=== PATIENT | female | born 1945 | race Caucasian/White ===

== ENCOUNTER 2020-02-22 22:11 | Inpatient (IN) | payer MEDICARE ==
[~2020-02-22] VITALS: Ht 154.9 cm; Wt 90.0 kg
[2020-02-22 22:33] LABS: BASOPHILS % (AUTO) 0.6 % (0-1); EOSINOPHILS % (AUTO) 0.1 % (0-6); HEMOGLOBIN 8.3 g/dl (12.0-16.0); LYMPHOCYTES # (AUTO) 0.2 X10'3 (1.1-4.8); LYMPHOCYTES % (AUTO) 2.4 % (21-51); MEAN CORPUSCULAR HEMOGLOBIN 27.2 PG (27.0-31.0); MEAN CORPUSCULAR HGB CONC 33.2 g/dL (33.0-36.5); MEAN PLATELET VOLUME 7.8 FL (7.4-10.4); MONOCYTES # (AUTO) 0.5 X10'3 (0-0.9); MONOCYTES % (AUTO) 5.9 % (2-12); NEUTROPHILS # (AUTO) 7.7 X10'3 (1.8-7.7); PLATELET COUNT 214 X10'3 (140-440); RED BLOOD COUNT 3.05 X10'6 (4.20-5.60); RED CELL DISTRIBUTION WIDTH 15.7 % (11.5-14.5); WHITE BLOOD COUNT 8.5 X10'3 (4.5-11.0)
--- NOTE | 2020-02-22 22:42 | NUR ---
Pt tucked into bed, lights dimmed. Call light by her. She is sleepy. Encouraged her to rest.
[2020-02-22 22:49] LABS: ALANINE AMINOTRANSFERASE 138 U/L (12-78); ALBUMIN 2.7 G/DL (3.4-5.0); ALBUMIN/GLOBULIN RATIO 0.8 (1.1-1.5); ALKALINE PHOSPHATASE 207 IU/L (46-116); ANION GAP 10 (8-16); ASPARTATE AMINO TRANSFERASE 101 U/L (10-37); BILIRUBIN,TOTAL 3.7 MG/DL (0.1-1.0); BLOOD UREA NITROGEN 34 MG/DL (7-18); BUN/CREATININE RATIO 15.2 (6.6-38.0); CALCIUM 8.2 MG/DL (8.5-10.1); CHLORIDE 93 MMOL/L (99-107); CREATININE 2.23 MG/DL (0.40-0.90); GLUCOSE 128 MG/DL (70-104); POTASSIUM 5.4 MMOL/L (3.5-5.1); SODIUM 122 MMOL/L (135-145); TOTAL CARBON DIOXIDE 18.6 MMOL/L (24-32); TOTAL PROTEIN 6.2 G/DL (6.4-8.2); eGFR 21 ML/MIN
[2020-02-22] MEDS ORDERED: HYDR12.55 PO (22:56)
[2020-02-22] MEDS ORDERED: LEVO75TA7 PO (22:56)
[2020-02-22] MEDS ORDERED: LECI400C2 PO (22:56)
[2020-02-22] MEDS ORDERED: TELM80TA9 PO (22:56)
[2020-02-22] MEDS ORDERED: AMIT10TA6 PO (22:56)
[2020-02-22] MEDS ORDERED: FLAX100031 PO (22:56)
[2020-02-22] MEDS ORDERED: EVOL140P3 SUBCUT (22:56)
[2020-02-22] MEDS ORDERED: ASPI81TA52 PO (22:56)
[2020-02-22] MEDS ORDERED: OMEP40CA13 PO (22:56)
[2020-02-22] MEDS ORDERED: VITA-268 PO (22:56)
[2020-02-22] MEDS ORDERED: FERR325T28 PO (22:56)
[2020-02-22] MEDS ORDERED: MAGN200T PO (22:56)
[2020-02-22] MEDS ORDERED: DOCU-148 PO ×2 (22:56)
[2020-02-22] MEDS ORDERED: OMEG-15 PO (22:56)
[2020-02-22] MEDS ORDERED: CALC300T4 PO (22:56)
[2020-02-22] MEDS ORDERED: vitamin d3 PO (22:57)
[2020-02-22] MEDS ORDERED: ASCO500C17 PO (22:57)
[2020-02-22] MEDS ORDERED: furosemide 10 MG/1 ML 10ml inj IV ONE (23:25)
--- NOTE | 2020-02-22 23:55 | NUR ---
Pt states that she just doens't feel getting up to the BR or even BS commode is anything she wants to try. She said she is just so weak, and so wiped out that she just wants a rios. Hospitalist states to place rios.
[2020-02-23] VITALS (11 sets, daily range): BP systolic 112–165; BP diastolic 46–90
--- NOTE | 2020-02-23 00:02 | NUR ---
Patient's daughter Samantha's phone number [phone].
[2020-02-23] MEDS ORDERED: normal saline 1000ml 1,000 ML IV SCH (00:06)
[2020-02-23] MEDS ORDERED: ondansetron/PF 4mg/2ml inj IV PRN (00:10)
[2020-02-23] MEDS ORDERED: morphine 2 MG/ML inj. syringe IV PRN ×2 (00:10)
[2020-02-23] MEDS ORDERED: magnesium 4gm in 100ml NS 100 ML IV PRN (00:10)
[2020-02-23] MEDS ORDERED: potassium Cl 20 mEq SR tablet PO PRN ×2 (00:10)
[2020-02-23] MEDS ORDERED: magnesium 2GM in 50ml NS 50 ML IV PRN (00:10)
[2020-02-23] MEDS ORDERED: potassium CL 10mEq/100ml bag 100 ML IV PRN ×2 (00:10)
[2020-02-23] MEDS ORDERED: pantoprazole 40 MG vial IV ONE (00:20)
--- NOTE | 2020-02-23 00:26 | NUR ---
informed Dr Cash that I just adm lasix 20 mg IV and if he really wants NS infusing at 100. He told me to dc that order and just have the patient saline locked. I informed him that she already had the protonix IVP at the other facility and he told me to cancel the IVP as well.
[2020-02-23] MEDS ORDERED: LIDOcaine 2% 10ml TOPICAL JELLY (Urojet) TP ONE (01:05)
[2020-02-23] MEDS: normal saline 1000ml 1,000 ML IV SCH ×3 (01:26→20:23)
[2020-02-23] MEDS: pantoprazole 40MG/NS 100ML BAG 100 ML IV SCH ×5 (01:26→20:23)
[2020-02-23 04:31] LABS: HEMOGLOBIN 8.8 g/dl (12.0-16.0); MEAN CORPUSCULAR HEMOGLOBIN 26.9 PG (27.0-31.0); MEAN CORPUSCULAR HGB CONC 32.6 g/dL (33.0-36.5); MEAN CORPUSCULAR VOLUME 82.5 FL (78-98); PLATELET COUNT 295 X10'3 (140-440); RED BLOOD COUNT 3.27 X10'6 (4.20-5.60); WHITE BLOOD COUNT 8.6 X10'3 (4.5-11.0)
--- NOTE | 2020-02-23 06:32 | NUR ---
Problems reprioritized. Patient report given, questions answered & plan of care reviewed with Juanita DICK.
[2020-02-23] MEDS: calcium carbonate 500mg chew tablet PO SCH (07:48)
[2020-02-23] MEDS: ferrous sulfate 325mg tablet PO SCH (07:49)
[2020-02-23] MEDS: OMEGA-3/DHA/EPA/FISH OIL 1 EACH CAPSULE.DR PO SCH (07:49)
[2020-02-23] MEDS: vitamin D (cholecalciferol) 1,000 unit tablet PO SCH (07:49)
[2020-02-23] MEDS: docusate sod 100mg capsule PO SCH ×2 (07:50→20:22)
[2020-02-23] MEDS: levoTHYROXINE 75mcg tablet PO SCH (07:50)
[2020-02-23] MEDS: losartan 25mg tablet PO SCH (07:51)
[2020-02-23] MEDS: ascorbic acid 500mg tablet PO SCH (07:54)
[2020-02-23] MEDS ORDERED: FLAXSEED OIL 2400 MG PO SCH (08:00)
[2020-02-23] MEDS ORDERED: TELMISARTAN PO SCH (08:00)
[2020-02-23] MEDS ORDERED: non-formulary drug (Vitamin B Complex (B Complex) 1 TAB) PO SCH (08:00)
[2020-02-23] MEDS ORDERED: K and/or MAG REPLACEMENT MC SCH (08:00)
[2020-02-23] MEDS ORDERED: docusate sod 100mg capsule PO SCH (08:00)
[2020-02-23] MEDS ORDERED: LECITHIN PO SCH (08:00)
[2020-02-23] MEDS ORDERED: MAGNESIUM PO SCH (08:00)
[2020-02-23 08:35] LABS: ALANINE AMINOTRANSFERASE 132 U/L (12-78); ALBUMIN 2.7 G/DL (3.4-5.0); ALBUMIN/GLOBULIN RATIO 0.8 (1.1-1.5); ALKALINE PHOSPHATASE 197 IU/L (46-116); ANION GAP 10 (8-16); ASPARTATE AMINO TRANSFERASE 97 U/L (10-37); BILIRUBIN,TOTAL 3.3 MG/DL (0.1-1.0); BLOOD UREA NITROGEN 34 MG/DL (7-18); CALCIUM 8.2 MG/DL (8.5-10.1); CHLORIDE 96 MMOL/L (99-107); CREATININE 2.27 MG/DL (0.40-0.90); GLUCOSE 97 MG/DL (70-104); POTASSIUM 4.1 MMOL/L (3.5-5.1); SODIUM 128 MMOL/L (135-145); TOTAL CARBON DIOXIDE 22.5 MMOL/L (24-32); eGFR 21 ML/MIN
--- NOTE | 2020-02-23 10:33 | NUR ---
Dr. Jaimes at bedside with patient and nurse. Continue to keep pt NPO for EGD today. Will continue to monitor.
--- NOTE | 2020-02-23 11:20 | NUR ---
GI lab called, procedure at 1pm today via wheelchair.
[2020-02-23 12:14] LABS: HEMATOCRIT 24.6 % (35.0-45.0); HEMOGLOBIN 8.1 g/dl (12.0-16.0); MEAN CORPUSCULAR HEMOGLOBIN 27.1 PG (27.0-31.0); MEAN CORPUSCULAR VOLUME 82.2 FL (78-98); MEAN PLATELET VOLUME 8.1 FL (7.4-10.4); PLATELET COUNT 275 X10'3 (140-440); RED BLOOD COUNT 2.99 X10'6 (4.20-5.60); RED CELL DISTRIBUTION WIDTH 15.8 % (11.5-14.5); WHITE BLOOD COUNT 8.7 X10'3 (4.5-11.0)
--- NOTE | 2020-02-23 13:36 | NUR ---
Patient transported to GI Lab via wheelchair and tech.
[2020-02-23] MEDS ORDERED: fentaNYL/PF 50MCG/1 ML 2ML syringe ONE (14:23)
[2020-02-23] MEDS ORDERED: MIDAZolam 5mg/5ml vial ONE (14:24)
[2020-02-23] MEDS ORDERED: LIDOcaine Viscous 15ml cup ONE (14:25)
--- NOTE | 2020-02-23 16:05 | NUR ---
Unable to obtain Vital signs due to patient in GI Lab.
--- NOTE | 2020-02-23 16:43 | NUR ---
GI Lab called report, spoke to Yue. Patient on the way to room. Will continue to monitor.
--- NOTE | 2020-02-23 16:56 | NUR ---
Patient is in room sitting in chair. VSS: BP: 156/76, HR: 84, 0/10 Pain, 98%RA. Patient is waiting to have some water before starting with clear liquids No reds as per advised by GI Lab. Will continue to monitor.
[2020-02-23] MEDS ORDERED: loratadine 10mg tablet PO ONE (18:15)
--- NOTE | 2020-02-23 18:19 | NUR ---
Patient in room PCU 3025. I have received report from Juanita DICK and had the opportunity to ask questions and assume patient care.
--- NOTE | 2020-02-23 18:19 | NUR ---
Problems reprioritized. Patient report given, questions answered & plan of care reviewed with Freddie DICK.
[2020-02-23 18:35] LABS: HEMATOCRIT 24.8 % (35.0-45.0); HEMOGLOBIN 8.1 g/dl (12.0-16.0); MEAN CORPUSCULAR HGB CONC 32.7 g/dL (33.0-36.5); MEAN CORPUSCULAR VOLUME 82.7 FL (78-98); MEAN PLATELET VOLUME 7.4 FL (7.4-10.4); PLATELET COUNT 295 X10'3 (140-440); RED CELL DISTRIBUTION WIDTH 15.7 % (11.5-14.5); WHITE BLOOD COUNT 8.2 X10'3 (4.5-11.0)
[2020-02-23] MEDS: amitriptyline 10mg tablet PO SCH (20:23)
[2020-02-23] MEDS ORDERED: diphenhydrAMINE 25mg capsule PO PRN (21:00)
[2020-02-23 22:03] LABS: HEMATOCRIT 24.4 % (35.0-45.0); HEMOGLOBIN 8.3 g/dl (12.0-16.0); MEAN CORPUSCULAR HEMOGLOBIN 27.8 PG (27.0-31.0); MEAN CORPUSCULAR HGB CONC 33.8 g/dL (33.0-36.5); MEAN CORPUSCULAR VOLUME 82.3 FL (78-98); MEAN PLATELET VOLUME 7.4 FL (7.4-10.4); PLATELET COUNT 307 X10'3 (140-440); RED BLOOD COUNT 2.97 X10'6 (4.20-5.60); RED CELL DISTRIBUTION WIDTH 15.4 % (11.5-14.5)
[2020-02-23 22:11] LABS: % IRON SATURATION 4 % (11-46); IRON 12 UG/DL (49-151); TOTAL IRON BINDING CAPACITY 316 UG/DL (259-388)
[2020-02-24] MEDS: pantoprazole 40MG/NS 100ML BAG 100 ML IV SCH ×2 (01:00→08:25)
[2020-02-24 02:00] VITALS: BP 145/82
[2020-02-24] MEDS: normal saline 1000ml 1,000 ML IV SCH ×2 (02:52→20:12)
[2020-02-24 05:19] LABS: HEMOGLOBIN 7.2 g/dl (12.0-16.0); MEAN CORPUSCULAR HEMOGLOBIN 27.1 PG (27.0-31.0); MEAN CORPUSCULAR HGB CONC 33.3 g/dL (33.0-36.5); MEAN CORPUSCULAR VOLUME 81.3 FL (78-98); MEAN PLATELET VOLUME 7.5 FL (7.4-10.4); PLATELET COUNT 243 X10'3 (140-440); RED BLOOD COUNT 2.64 X10'6 (4.20-5.60); RED CELL DISTRIBUTION WIDTH 16.2 % (11.5-14.5); WHITE BLOOD COUNT 7.6 X10'3 (4.5-11.0)
[2020-02-24 05:27] LABS: ALANINE AMINOTRANSFERASE 112 U/L (12-78); ALBUMIN 2.3 G/DL (3.4-5.0); ALBUMIN/GLOBULIN RATIO 0.7 (1.1-1.5); ALKALINE PHOSPHATASE 182 IU/L (46-116); ANION GAP 11 (8-16); ASPARTATE AMINO TRANSFERASE 73 U/L (10-37); BILIRUBIN,TOTAL 2.4 MG/DL (0.1-1.0); BLOOD UREA NITROGEN 28 MG/DL (7-18); BUN/CREATININE RATIO 15.8 (6.6-38.0); CHLORIDE 101 MMOL/L (99-107); CREATININE 1.77 MG/DL (0.40-0.90); GLUCOSE 102 MG/DL (70-104); MAGNESIUM 1.7 MG/DL (1.5-2.4); POTASSIUM 4.1 MMOL/L (3.5-5.1); SODIUM 132 MMOL/L (135-145); TOTAL CARBON DIOXIDE 20.1 MMOL/L (24-32); TOTAL PROTEIN 5.6 G/DL (6.4-8.2); eGFR 28 ML/MIN
[2020-02-24 05:28] LABS: HEMATOCRIT 21.5 % (35.0-45.0)
--- NOTE | 2020-02-24 06:17 | NUR ---
Problems reprioritized. Patient report given, questions answered & plan of care reviewed with Juanita DICK.
--- NOTE | 2020-02-24 06:30 | NUR ---
Patient in room PCU 3025. I have received report from Freddie DICK and had the opportunity to ask questions and assume patient care.
[2020-02-24 07:00] VITALS: BP 122/68
[2020-02-24] MEDS ORDERED: HYDROchlorothiazide 12.5mg capsule PO SCH (08:00)
[2020-02-24] MEDS: calcium carbonate 500mg chew tablet PO SCH (08:25)
[2020-02-24] MEDS: OMEGA-3/DHA/EPA/FISH OIL 1 EACH CAPSULE.DR PO SCH (08:25)
[2020-02-24] MEDS: ascorbic acid 500mg tablet PO SCH (08:28)
[2020-02-24] MEDS: levoTHYROXINE 75mcg tablet PO SCH (08:28)
[2020-02-24] MEDS: ferrous sulfate 325mg tablet PO SCH (08:29)
[2020-02-24] MEDS: docusate sod 100mg capsule PO SCH ×2 (08:29→20:02)
[2020-02-24] MEDS: losartan 25mg tablet PO SCH (08:29)
[2020-02-24] MEDS: vitamin D (cholecalciferol) 1,000 unit tablet PO SCH (08:29)
[2020-02-24 10:40] LABS: HEMOGLOBIN 7.4 g/dl (12.0-16.0); MEAN CORPUSCULAR HEMOGLOBIN 27.6 PG (27.0-31.0); MEAN CORPUSCULAR HGB CONC 33.6 g/dL (33.0-36.5); MEAN CORPUSCULAR VOLUME 82.3 FL (78-98); MEAN PLATELET VOLUME 7.3 FL (7.4-10.4); PLATELET COUNT 277 X10'3 (140-440); RED BLOOD COUNT 2.68 X10'6 (4.20-5.60); RED CELL DISTRIBUTION WIDTH 16.1 % (11.5-14.5); WHITE BLOOD COUNT 7.7 X10'3 (4.5-11.0)
[2020-02-24 11:00] VITALS: BP 150/46
--- NOTE | 2020-02-24 12:49 | NUR ---
Dr. Lyons at bedside with patient and nurse. New order drop fluids NS to 75ml/hr, and to stop protonix and change to 40mg IV BID. Will continue to monitor. Addendum: 02/24/20 at 1255 by Juanita Edward RN MD is aware of H/H dropping. We will continue to monitor labs
--- NOTE | 2020-02-24 13:21 | NUR ---
Dr. Lynos at bedside with patient and nurse again. is aware of recommendations per the EGD done 02-23-20. New orders Benadryl Q6 PRN, for itchiness, Miralax 1 packet at night daily, Suppository Q daily PRN if needed and pain medication Welsh 5 for mild and Welsh 10 for severe Q6 Hr, DC Overton and monitor urine output and ability to urinate. Dr will be waiting for ultrasound and VL.
[2020-02-24] MEDS ORDERED: HYDROcodone/acetaminophen 5mg/325mg tablet PO PRN (13:30)
[2020-02-24] MEDS ORDERED: HYDROcodone/acetaminophen 10/325mg tab PO PRN (13:30)
[2020-02-24] MEDS ORDERED: diphenhydrAMINE 25mg capsule PO PRN (13:30)
[2020-02-24] MEDS ORDERED: bisacodyl 10mg suppository rectal RC PRN (13:30)
--- NOTE | 2020-02-24 13:36 | NUR ---
Dr. Lyons's New orders, Advance diet to full liquids and advance to Heart Healthy diet.
--- NOTE | 2020-02-24 14:00 | NUR ---
Patient Overton was Discontinued. Patient tolerated well. Patient was cleaned and bed changed, awaiting for study. Will continue to monitor.
[2020-02-24 15:00] VITALS: BP 166/54
[2020-02-24 15:52] LABS: HEMATOCRIT 22.2 % (35.0-45.0); HEMOGLOBIN 7.4 g/dl (12.0-16.0); MEAN CORPUSCULAR HEMOGLOBIN 27.9 PG (27.0-31.0); MEAN CORPUSCULAR HGB CONC 33.5 g/dL (33.0-36.5); MEAN CORPUSCULAR VOLUME 83.1 FL (78-98); MEAN PLATELET VOLUME 7.1 FL (7.4-10.4); PLATELET COUNT 258 X10'3 (140-440); RED BLOOD COUNT 2.67 X10'6 (4.20-5.60); RED CELL DISTRIBUTION WIDTH 15.9 % (11.5-14.5)
[2020-02-24] MEDS ORDERED: LORazepam 2 mg/ml vial IV ONE (15:55)
--- NOTE | 2020-02-24 16:32 | NUR ---
Patient down in MRI via wheelchair and Tech. Ativan given. Will continue to monitor.
--- NOTE | 2020-02-24 18:00 | NUR ---
Patient in room PCU 3025. I have received report from KAPIL Grant and had the opportunity to ask questions and assume patient care.
--- NOTE | 2020-02-24 18:32 | NUR ---
Problems reprioritized. Patient report given, questions answered & plan of care reviewed with Umm DICK.
[2020-02-24] MEDS: polyethylene glycol 3350 17gm powd pack PO SCH (20:04)
[2020-02-24] MEDS: amitriptyline 10mg tablet PO SCH (20:04)
[2020-02-24] MEDS: pantoprazole 40 MG vial IV SCH (20:07)
[2020-02-24 22:00] VITALS: BP 169/77
[2020-02-24 22:14] VITALS: BP 156/70
[2020-02-24 22:19] LABS: HEMATOCRIT 25.6 % (35.0-45.0); HEMOGLOBIN 8.5 g/dl (12.0-16.0); MEAN CORPUSCULAR HEMOGLOBIN 27.5 PG (27.0-31.0); MEAN CORPUSCULAR HGB CONC 33.2 g/dL (33.0-36.5); MEAN CORPUSCULAR VOLUME 82.7 FL (78-98); MEAN PLATELET VOLUME 7.7 FL (7.4-10.4); PLATELET COUNT 326 X10'3 (140-440); RED CELL DISTRIBUTION WIDTH 16.4 % (11.5-14.5); WHITE BLOOD COUNT 8.2 X10'3 (4.5-11.0)
[2020-02-25 01:38] VITALS: BP 161/59
[2020-02-25 06:00] VITALS: BP 152/65
--- NOTE | 2020-02-25 06:20 | NUR ---
Problems reprioritized. Patient report given, questions answered & plan of care reviewed with KAPIL Coy.
--- NOTE | 2020-02-25 06:30 | NUR ---
received report from trey xiong
[2020-02-25 06:31] LABS: ALANINE AMINOTRANSFERASE 97 U/L (12-78); ALBUMIN 2.5 G/DL (3.4-5.0); ALBUMIN/GLOBULIN RATIO 0.7 (1.1-1.5); ALKALINE PHOSPHATASE 192 IU/L (46-116); ANION GAP 12 (8-16); ASPARTATE AMINO TRANSFERASE 56 U/L (10-37); BILIRUBIN,TOTAL 1.9 MG/DL (0.1-1.0); BLOOD UREA NITROGEN 19 MG/DL (7-18); BUN/CREATININE RATIO 11.9 (6.6-38.0); CALCIUM 8.7 MG/DL (8.5-10.1); CHLORIDE 104 MMOL/L (99-107); GLUCOSE 98 MG/DL (70-104); MAGNESIUM 1.8 MG/DL (1.5-2.4); POTASSIUM 3.9 MMOL/L (3.5-5.1); SODIUM 135 MMOL/L (135-145); TOTAL CARBON DIOXIDE 19.1 MMOL/L (24-32); eGFR 32 ML/MIN
[2020-02-25 06:51] LABS: AFP,SERUM, TUMOR MARKER 2.5 ng/mL (0.0-8.3)
[2020-02-25] MEDS: calcium carbonate 500mg chew tablet PO SCH (09:27)
[2020-02-25] MEDS: ascorbic acid 500mg tablet PO SCH (09:27)
[2020-02-25] MEDS: levoTHYROXINE 75mcg tablet PO SCH (09:27)
[2020-02-25] MEDS: vitamin D (cholecalciferol) 1,000 unit tablet PO SCH (09:28)
[2020-02-25] MEDS: OMEGA-3/DHA/EPA/FISH OIL 1 EACH CAPSULE.DR PO SCH (09:29)
[2020-02-25] MEDS: ferrous sulfate 325mg tablet PO SCH (09:29)
[2020-02-25] MEDS: losartan 25mg tablet PO SCH (09:30)
[2020-02-25] MEDS: docusate sod 100mg capsule PO SCH ×2 (09:30→20:16)
[2020-02-25] MEDS: pantoprazole 40 MG vial IV SCH ×2 (09:31→20:15)
[2020-02-25] MEDS: normal saline 1000ml 1,000 ML IV SCH (09:34)
[2020-02-25 11:00] VITALS: BP 170/71
[2020-02-25 15:00] VITALS: BP 163/60
--- NOTE | 2020-02-25 15:00 | NUR ---
sent a page to hospitalist on behalf of pt, pt tells me that she would like to change her code status to a limited code and that she does not want CPR and does not want defib/cardioversion, no new orders at this time continue to monitor
--- NOTE | 2020-02-25 15:37 | NUR ---
Paged case management RE: Krystin Herrera [id number]. Pt's son Stephane would like to speak with you- # [phone]
--- NOTE | 2020-02-25 17:08 | NUR ---
hospitalist would like to maintain a full code status on pt til he speaks w/poa, continue to monitor
[2020-02-25] MEDS ORDERED: metoprolol tartrate 1mg/ml inj IV PRN (17:15)
[2020-02-25] MEDS ORDERED: nitroGLYCERIN 0.4mg SUBLingual tab SL PRN (17:15)
[2020-02-25] MEDS ORDERED: aminophylline 250mg/10ml inj. IV PRN (17:15)
[2020-02-25] MEDS ORDERED: regadenoson 0.4mg/5ml syringe IV PRN (17:15)
[2020-02-25 18:00] VITALS: BP 159/63
--- NOTE | 2020-02-25 18:32 | NUR ---
gave report to trey montoya
--- NOTE | 2020-02-25 18:32 | NUR ---
Patient in room PCU 3025. I have received report from Anneliese DICK and had the opportunity to ask questions and assume patient care.
[2020-02-25] MEDS: polyethylene glycol 3350 17gm powd pack PO SCH (20:16)
[2020-02-25] MEDS: amitriptyline 10mg tablet PO SCH (20:16)
[2020-02-25 22:00] VITALS: BP 138/74
[2020-02-26] VITALS (21 sets, daily range): BP systolic 138–171; BP diastolic 58–78
[2020-02-26 06:07] LABS: BASOPHILS # (AUTO) 0.1 X10'3 (0-0.2); BASOPHILS % (AUTO) 0.8 % (0-1); EOSINOPHILS # (AUTO) 0.2 X10'3 (0-0.9); EOSINOPHILS % (AUTO) 2.4 % (0-6); HEMOGLOBIN 7.1 g/dl (12.0-16.0); LYMPHOCYTES # (AUTO) 0.6 X10'3 (1.1-4.8); LYMPHOCYTES % (AUTO) 7.6 % (21-51); MEAN CORPUSCULAR HEMOGLOBIN 26.6 PG (27.0-31.0); MEAN CORPUSCULAR HGB CONC 32.5 g/dL (33.0-36.5); MEAN CORPUSCULAR VOLUME 81.8 FL (78-98); MEAN PLATELET VOLUME 7.9 FL (7.4-10.4); MONOCYTES # (AUTO) 1.1 X10'3 (0-0.9); MONOCYTES % (AUTO) 14.2 % (2-12); NEUTROPHILS # (AUTO) 5.7 X10'3 (1.8-7.7); PLATELET COUNT 319 X10'3 (140-440); RED BLOOD COUNT 2.66 X10'6 (4.20-5.60); RED CELL DISTRIBUTION WIDTH 16.4 % (11.5-14.5); WHITE BLOOD COUNT 7.6 X10'3 (4.5-11.0)
[2020-02-26 06:10] LABS: HEMATOCRIT 21.7 % (35.0-45.0)
--- NOTE | 2020-02-26 06:14 | NUR ---
Page Sent PAGER ID: [phone] MESSAGE: Patient room# 3579M Melissa Herrera -critical Hct level=21.7 -Latia DICK #[id number]
--- NOTE | 2020-02-26 06:17 | NUR ---
Dr. Jaimes called back, confirmed rcvd critical lab on Hct =21.7, no new orders. Day shift informed in report. (Nikita RN confirmed they will also inform day hospitalist Dr. Lyons
[2020-02-26 06:21] LABS: ALANINE AMINOTRANSFERASE 80 U/L (12-78); ALBUMIN 2.3 G/DL (3.4-5.0); ALBUMIN/GLOBULIN RATIO 0.6 (1.1-1.5); ALKALINE PHOSPHATASE 181 IU/L (46-116); ANION GAP 10 (8-16); ASPARTATE AMINO TRANSFERASE 41 U/L (10-37); BILIRUBIN,TOTAL 1.5 MG/DL (0.1-1.0); BLOOD UREA NITROGEN 14 MG/DL (7-18); BUN/CREATININE RATIO 9.5 (6.6-38.0); CALCIUM 8.6 MG/DL (8.5-10.1); CHLORIDE 104 MMOL/L (99-107); CREATININE 1.47 MG/DL (0.40-0.90); GLUCOSE 96 MG/DL (70-104); MAGNESIUM 1.6 MG/DL (1.5-2.4); PHOSPHORUS 4.8 MG/DL (2.3-4.5); POTASSIUM 3.8 MMOL/L (3.5-5.1); SODIUM 136 MMOL/L (135-145); TOTAL CARBON DIOXIDE 21.9 MMOL/L (24-32); TOTAL PROTEIN 5.9 G/DL (6.4-8.2); eGFR 35 ML/MIN
--- NOTE | 2020-02-26 06:25 | NUR ---
Problems reprioritized. Patient report given, questions answered & plan of care reviewed with Coby RN & Luz Elena DICK.
--- NOTE | 2020-02-26 06:32 | NUR ---
Patient in room PCU 3025. I have received report from Eve DICK and had the opportunity to ask questions and assume patient care. Patient awake in bed and offers no complaints. All immediate needs met at this time.
--- NOTE | 2020-02-26 06:32 | NUR ---
Patient in room PCU 3025. I have received report from Esha DICK and had the opportunity to ask questions and assume patient care. Patient alert on transfer of care. All current needs met
[2020-02-26] MEDS: ferrous sulfate 325mg tablet PO SCH (07:41)
[2020-02-26] MEDS: calcium carbonate 500mg chew tablet PO SCH (07:41)
[2020-02-26] MEDS: vitamin D (cholecalciferol) 1,000 unit tablet PO SCH (07:42)
[2020-02-26] MEDS: losartan 25mg tablet PO SCH (07:42)
[2020-02-26] MEDS: OMEGA-3/DHA/EPA/FISH OIL 1 EACH CAPSULE.DR PO SCH (07:43)
[2020-02-26] MEDS: docusate sod 100mg capsule PO SCH (07:43)
[2020-02-26] MEDS: ascorbic acid 500mg tablet PO SCH (07:43)
[2020-02-26] MEDS: pantoprazole 40 MG vial IV SCH (07:43)
[2020-02-26] MEDS: levoTHYROXINE 75mcg tablet PO SCH (07:43)
[2020-02-26 09:08] LABS: TROPONIN I 0.11 NG/ML (0.0-0.05)
[2020-02-26 11:02] LABS: HEMATOCRIT 25.3 % (35.0-45.0); HEMOGLOBIN 8.4 g/dl (12.0-16.0); MEAN CORPUSCULAR HEMOGLOBIN 27.2 PG (27.0-31.0); MEAN CORPUSCULAR HGB CONC 33.1 g/dL (33.0-36.5); MEAN CORPUSCULAR VOLUME 82.1 FL (78-98); MEAN PLATELET VOLUME 7.4 FL (7.4-10.4); PLATELET COUNT 362 X10'3 (140-440); RED BLOOD COUNT 3.08 X10'6 (4.20-5.60); RED CELL DISTRIBUTION WIDTH 16.4 % (11.5-14.5); WHITE BLOOD COUNT 10.1 X10'3 (4.5-11.0)
[2020-02-26 14:14] LABS: HEP A AB, IGM Negative (Negative); HEPATITIS C ANTIBODY <0.1 s/co ratio (0.0-0.9)
--- NOTE | 2020-02-26 14:49 | NUR ---
Paged Dr. Lyons: PAGER ID: [phone] MESSAGE: RE: Melissa Herrera [id number]. Patient Lexiscan results back. Negative for ischemia. Is it OK to feed patient? Thank you. Bella [phone]
[2020-02-26] MEDS ORDERED: NITR0.4T51 SL (16:20)
[2020-02-26] MEDS ORDERED: PANT40TA4 PO (16:20)
--- NOTE | 2020-02-26 17:56 | NUR ---
Patient is stable for discharge per MD orders. All discharge instructions reviewed with patient. Family members educated that all information for any questions would be in the discharge packet including all follow up physician information. New prescriptions escript to [facility] in [place]. PIV discontinued, catheter intact, patent. Tele d/c and telecommunications technician notified. patient did not have any belongings with them. patient had no clothing and was transferred down to the [facility] via wheelchair in a patient gown by [facility].
--- NOTE | 2020-02-26 17:58 | NUR ---
[place] documentation: I have reviewed and agree with all interventions, assessments performed and documented by Luz Elena DICK. [place] Medication Administration: For this medication-pass time frame, all medication were reviewed, dispensed, administered and documented per hospital policy by KAPIL Laguna.
[2020-02-27] MEDS ORDERED: CHLO25TA11 PO (09:53)
[2020-02-27 15:30] LABS: CERULOPLASMIN 40.6 mg/dL (19.0-39.0)
--- NOTE | 2020-02-27 15:59 | NUR ---
Case management DC follow up: LM/VM re post DC status, question, concerns
== END 2020-02-26 17:55 | disposition home or self-care (01) | DRG 377 ==
LOC: ER 22:12 → UNDOADMIN 02-23 00:06 → PCU 3S 02-23 00:06
PROVIDERS: ADMIT Family Medicine; ATTEND Internal Medicine
PROC: 0DB68ZX Excision of Stomach, Via Natural or Artificial Opening Endoscopic, Diagnostic (ICD-10-PCS; 2020-02-23)
PROC: 4A02XM4 Measurement of Cardiac Total Activity, External Approach (ICD-10-PCS; principal; 2020-02-26)
PROC: 3E073KZ Introduction of Other Diagnostic Substance into Coronary Artery, Percutaneous Approach (ICD-10-PCS; 2020-02-26)
DX: K29.71 Gastritis, unspecified, with bleeding (principal); I21.A1 Myocardial infarction type 2; I50.33 Acute on chronic diastolic (congestive) heart failure; E87.1 Hypo-osmolality and hyponatremia; N17.9 Acute kidney failure, unspecified; D62 Acute posthemorrhagic anemia; I13.0 Hypertensive heart and chronic kidney disease with heart failure and stage 1 through stage 4 chronic kidney disease, or unspecified chronic kidney disease; N18.3 Chronic kidney disease, stage 3 (moderate); E87.5 Hyperkalemia; F41.9 Anxiety disorder, unspecified; G89.29 Other chronic pain; M54.9 Dorsalgia, unspecified; E03.9 Hypothyroidism, unspecified; K44.9 Diaphragmatic hernia without obstruction or gangrene; E78.5 Hyperlipidemia, unspecified; I35.2 Nonrheumatic aortic (valve) stenosis with insufficiency; M79.7 Fibromyalgia; Z79.890 Hormone replacement therapy; Z82.0 Family history of epilepsy and other diseases of the nervous system; Z82.49 Family history of ischemic heart disease and other diseases of the circulatory system; Z90.49 Acquired absence of other specified parts of digestive tract; Z90.710 Acquired absence of both cervix and uterus; Z88.8 Allergy status to other drugs, medicaments and biological substances; Z79.899 Other long term (current) drug therapy; Z98.42 Cataract extraction status, left eye; Z98.41 Cataract extraction status, right eye
CPT/HCPCS: 36415; 43239; 71045; 74181; 76700; 78452; 80053; 82103; 82390; 83540; 83550; 83735; 83880; 84100; 84443; 84484; 85025; 85027; 85610; 86705; 86706; 86709; 86803; 86885; 86900; 86901; 87081; 88305; 88307; 88309; 93005; 93017; 93306; 93975; 96374; 97110; 97116; 97161; 97530; 99152; 99285; A4620; A9500; C9113; G0378; J0280; J1940; J2060; J2250; J3010; J7030; J7040; Q0163